=== PATIENT | female | born 1995 | race American Indian/Alaskan Native ===

== ENCOUNTER 2018-01-02 01:53 | Emergency (ER) | payer MEDICAID ==
[2018-01-02] MEDS ORDERED: NACL 0.9% 1000 ML 1,000 ML IV ONE (02:30)
[2018-01-02 02:46] LABS: Hematocrit 40.1 % (30.3-42.9); Hemoglobin 13.1 gm/dl (10.1-14.3); Mean Corpuscular HGB Conc 33 % (30-34); Mean Corpuscular Volume 78 fl (79-97); Platelet Count 216 K/mm3 (140-440); Red Blood Count 5.12 M/mm3 (3.65-5.03)
[2018-01-02 02:48] LABS: Mean Corpuscular Hemoglobin 26 pg (28-32); Red Cell Distribution Width 23.2 % (13.2-15.2)
[2018-01-02 03:16] LABS: Alanine Aminotransferase 28 units/L (7-56); Albumin 4.3 g/dL (3.9-5); BUN/Creatinine Ratio 13; Blood Urea Nitrogen 10 mg/dL (7-17); Calcium 9.6 mg/dL (8.4-10.2); Hemolysis Index 1; Lipase 24 units/L (13-60)
[2018-01-02 03:26] LABS: Bilirubin,Urine NEG (Negative); Blood,Urine NEG (Negative); Color,Urine Yellow (Yellow); Mucus,Urine 1+ /HPF; Protein,Urine <15 mg/dL mg/dL (Negative)
[2018-01-02 03:59] LABS: Total Cells Counted 100
[2018-01-02 04:00] LABS: Anisocytosis 2+; Basophils % (Manual) 0 % (0.0-1.8); Hypochromasia 1+; Platelet Estimate Consistent w Auto
[2018-01-02] MEDS ORDERED: ZOFRAN ONE (09:52)
[2018-01-02] MEDS ORDERED: ZOFRAN IV ONE (10:00)
[2018-01-02] MEDS ORDERED: MORPHINE ONE (10:31)
[2018-01-02] MEDS ORDERED: MORPHINE IV ONE (10:37)
--- NOTE | 2018-01-02 10:44 | Emergency Department Report ---
ED Abdominal Pain HPI - General Chief Complaint: Abdominal Pain Stated Complaint: ABD PAIN Time Seen by Provider: 01/02/18 10:07 Source: patient Mode of arrival: Ambulatory Limitations: No Limitations - History of Present Illness Initial Comments: 22yo female with came in complaining of abdominal pain 5/10, mid abdomen, non radiating, no alleviating or exacerbating factors. Pt denies cp/sob MD Complaint: abdominal pain Onset/Timin -: Gradual, days(s) Location: diffuse, LUQ Radiation: none Migration to: no migration Severity: moderate Severity scale (0 -10): 5 Quality: cramping, fullness Consistency: intermittent Improves With: nothing Worsens With: nothing, eating Context: possible food poisoning Associated Symptoms: nausea. denies: diarrhea, fever, chills, constipation, hematemesis, hematochezia, melena, hematuria, anorexia, syncope - Related Data Previous Rx's Medication Instructions Recorded Last Taken Type oxyCODONE /ACETAMINOPHEN [Percocet 1 tab PO Q6HR PRN #6 tablet 01/02/18 Unknown Rx 5/325] Allergies Allergy/AdvReac Type Severity Reaction Status Date / Time Penicillins Allergy Swelling Verified 01/02/18 02:30 ED Review of Systems ROS: Stated complaint: ABD PAIN Other details as noted in HPI Constitutional: denies: chills, fever Eyes: denies: eye pain, eye discharge, vision change ENT: denies: ear pain, throat pain Respiratory: denies: cough, shortness of breath, wheezing Cardiovascular: denies: chest pain, palpitations Endocrine: no symptoms reported Gastrointestinal: denies: abdominal pain, nausea, diarrhea Genitourinary: denies: urgency, dysuria, discharge Musculoskeletal: denies: back pain, joint swelling, arthralgia Skin: denies: rash, lesions Neurological: denies: headache, weakness, paresthesias Psychiatric: denies: anxiety, depression Hematological/Lymphatic: denies: easy bleeding, easy bruising ED Past Medical Hx - Past Medical History Previous Medical History?: No - Surgical History Past Surgical History?: No - Social History Smoking Status: Never Smoker Substance Use Type: Alcohol - Medications Home Medications: Home Medications Medication Instructions Recorded Confirmed Last Taken Type oxyCODONE /ACETAMINOPHEN [Percocet 1 tab PO Q6HR PRN #6 tablet 01/02/18 Unknown Rx 5/325] ED Physical Exam - General Limitations: No Limitations General appearance: alert, in no apparent distress - Head Head exam: Present: atraumatic, normocephalic - Eye Eye exam: Present: normal appearance - ENT ENT exam: Present: mucous membranes moist - Neck Neck exam: Present: normal inspection - Respiratory Respiratory exam: Present: normal lung sounds bilaterally. Absent: respiratory distress - Cardiovascular Cardiovascular Exam: Present: regular rate, normal rhythm. Absent: systolic murmur, diastolic murmur, rubs, gallop - GI/Abdominal GI/Abdominal exam: Present: soft, tenderness (slightly tender to palpation of mid abdomen, no guarding, no rebound tenderness), normal bowel sounds - Extremities Exam Extremities exam: Present: normal inspection - Back Exam Back exam: Present: normal inspection - Neurological Exam Neurological exam: Present: alert, oriented X3 - Psychiatric Psychiatric exam: Present: normal affect, normal mood - Skin Skin exam: Present: warm, dry, intact, normal color. Absent: rash ED Course Vital Signs 01/02/18 01/02/18 01/02/18 02:27 08:32 09:51 Temperature 98.1 F 98.4 F 98.8 F Pulse Rate 100 H 104 H 90 Respiratory 16 18 16 Rate Blood Pressure 137/77 147/103 Blood Pressure 120/59 [Left] O2 Sat by Pulse 98 99 Oximetry 01/02/18 01/02/18 01/02/18 13:19 13:30 13:45 Temperature Pulse Rate Respiratory Rate Blood Pressure 99/54 101/54 Blood Pressure [Left] O2 Sat by Pulse 100 100 99 Oximetry 01/02/18 01/02/18 01/02/18 14:00 14:15 14:30 Temperature Pulse Rate Respiratory Rate Blood Pressure 100/55 107/55 90/66 Blood Pressure [Left] O2 Sat by Pulse 100 Oximetry 22yo female with no significan PMHx came in complaining of abodminal pain for past 3 daysl. Pts CTA is negative, Pts Ct abdomen/pelvis shows: 1 cm gallstone in the fundus of the gallbladder, no ductal dilation. Pt is under no acute distress. she is relaxing in bed I discussed the case with ( general surgeon [employer] application consultant) and per him to discharge pt home and he can see her in the office this week. I discussed with pt she will need a followup with him this week without fail to reevaluate and treatment ED Medical Decision Making - Lab Data Result diagrams: 01/02/18 02:35 01/02/18 02:35 Critical care attestation.: If time is entered above; I have spent that time in minutes in the direct care of this critically ill patient, excluding procedure time. ED Disposition Clinical Impression: Gallstone, Abdominal pain Disposition: DC-01 TO HOME OR SELFCARE Is pt being admited?: No Condition: Stable Instructions: Abdominal Pain (ED) Additional Instructions: Please make sure to get a HIDA scan tomorrow without fail, you are given a script to get it done tomorrow Prescriptions: oxyCODONE /ACETAMINOPHEN [Percocet 5/325] 1 tab PO Q6HR PRN #6 tablet PRN Reason: Pain Referrals: PRIMARY CARE, [Primary Care Provider] - 3-5 Days RAFAEL NICHOLSON MD [Staff Physician] - 24 Hours (Please call his office tomorrow without fail to make an appt )
--- NOTE | 2018-01-02 13:50 | Cat Scan Report ---
CTA CHEST: HISTORY: Abdominal pain. COMPARISON: none. TECHNIQUE: Helical CT in 1.25mm intervals following IV contrast. Pulmonary embolus protocol. Sagittal and coronal reformatted images. Rotational MIP images. FINDINGS: Contrast bolus is satisfactory. No pulmonary embolus is identified. Thyroid gland: Normal. Tracheobronchial tree: Normal. Esophagus: Normal. Heart: Normal. Pericardium: Normal. Mediastinum: Normal. Lung Hernadez: normal. Pleural Spaces: Normal. Musculoskeletal: Normal. IMPRESSION: No evidence for pulmonary embolus. Unremarkable CT chest with contrast.
--- NOTE | 2018-01-02 13:54 | Cat Scan Report ---
CT ABDOMEN PELVIS WITH CONTRAST: HISTORY: abdominal pain. COMPARISON: none. TECHNIQUE: Helical CT in 1.25mm intervals following IV contrast. Sagittal and coronal reconstructions. FINDINGS: Lung bases: Normal. Liver: Normal. Biliary system: At least one gallstone measuring 1 cm is identified in the fundus of the gallbladder. No biliary dilatation. Pancreas: Normal. Spleen: Normal. Kidneys/ureters/bladder: Normal. Adrenal glands: Normal. Aorta: Normal. Intestines: Normal. Appendix: Normal. Pelvic viscera: Right adnexal cysts measuring 1.7 cm and 1.8 cm. The left adnexa and uterus are unremarkable. Ascites: None. Adenopathy: None. Musculoskeletal: Normal. IMPRESSION: Right ovarian cysts as described. Gallstone.
[2018-01-02 14:51] VITALS: BP 90/66
== END 2018-01-02 17:01 | disposition home or self-care (01) ==
LOC: ED 01:53
DX: K80.80 Other cholelithiasis without obstruction (principal); Z88.0 Allergy status to penicillin
CPT/HCPCS: 36415; 71275; 74177; 80053; 81001; 83690; 84703; 85007; 85025; 96374; 96375; 99284; J2270; J2405; Q9967